=== PATIENT | male | born 1985 | race Caucasian/White ===

== ENCOUNTER 2018-02-07 20:16 | Emergency (ER) | payer OTHER ==
[~2018-02-07] VITALS: Ht 182.9 cm; Wt 134.1 kg
[~2018-02-07 20:16] MED LIST: ATIVAN0.5 MG PO; INDERAL 10MG10 MG PO; INDERAL 20MG20 MG PO; LEXAPRO 5MG5 MG PO; MULTAQ400 MG PO; NO HOME MEDICATIONS; PRADAXA 150MG150 MG PO; ULTRAM 50MG TAB50 MG PO
[2018-02-07 20:18] VITALS: TEMP 98.3
[2018-02-07 20:54] LABS: BASO # 0.1 (0.0-0.2); BASO % 0.8 % (0.0-2.0); EOS # 0.3 (0.0-0.7); EOS % 3.2 % (0-4.0); GRAN # 4.5 (1.4-6.5); HEMOGLOBIN 15.7 g/dl (13.5-18.0); LYMPH # 2.3 (1.2-3.4); LYMPH % 29.6 % (20.0-51.0); MEAN CELL VOLUME 89 fl (80.0-100.0); MEAN CORPUSCULAR HEMOGLOBIN 31 pg (27.0-31.0); MEAN CORPUSCULAR HGB CONC 34 g/dl (33.0-37.0); MONO # 0.6 (0.1-0.6); PLATELET COUNT 214 K/mm3 (130-400); RED BLOOD COUNT 5.15 M/mm3 (4.20-5.60); REDCELL DISTRIBUTION WIDTH-CV 12.8 % (11.5-14.5)
[2018-02-07 21:02] LABS: CALCIUM 8.5 mg/dL (8.4-10.2); CREATININE, serum 0.94 mg/dL (0.66-1.25); POTASSIUM 3.8 mmol/L (3.4-5.0)
[2018-02-07] MEDS ORDERED: LIPITOR20 MG PO (21:47)
[2018-02-07] MEDS ORDERED: PRIL40 PO (21:47)
[2018-02-07] MEDS ORDERED: TOPROL XL 25MG25 MG PO (21:47)
[2018-02-07] MEDS ORDERED: ADVIL200 MG PO (21:48)
[2018-02-07] MEDS ORDERED: ATIVAN 0.50.5 MG/TAB PO (21:48)
[2018-02-07] MEDS ORDERED: ASPIRIN 32325 MG/TAB PO (21:49)
[2018-02-07 22:00] VITALS: BP 126/80; PULSE 98
== END 2018-02-07 22:00 | disposition home or self-care (01) ==
LOC: COL.ER 20:16
PROVIDERS: Emergency Medicine
DX: I48.91 Unspecified atrial fibrillation (principal); Z79.82 Long term (current) use of aspirin
CPT/HCPCS: J2704; J7040

== ENCOUNTER 2019-03-14 13:31 | Emergency (ER) | payer SELFPAY ==
[~2019-03-14] VITALS: Ht 182.9 cm; Wt 123.6 kg
[~2019-03-14 13:31] MED LIST changes: +ADVIL200 MG PO; +ASPIRIN 32325 MG/TAB PO; +ATIVAN 0.50.5 MG/TAB PO; +LIPITOR20 MG PO; +PRIL40 PO; +TOPROL XL 25MG25 MG PO
[2019-03-14 15:40] LABS: BASO # 0.1 (0.0-0.2); BASO % 0.7 % (0.0-2.0); EOS # 0.2 (0.0-0.7); EOS % 2.1 % (0-4.0); GRAN # 4.9 (1.4-6.5); GRAN % 67.5 % (42.2-75.2); HEMATOCRIT 48.9 % (42.0-52.0); HEMOGLOBIN 16.3 g/dl (13.5-18.0); LYMPH # 1.6 (1.2-3.4); LYMPH % 21.5 % (20.0-51.0); MEAN CELL VOLUME 90 fl (80.0-100.0); MEAN CORPUSCULAR HEMOGLOBIN 30 pg (27.0-31.0); MEAN CORPUSCULAR HGB CONC 33 g/dl (33.0-37.0); MEAN PLATELET VOLUME 9.2 fl (7.4-10.4); MONO # 0.6 (0.1-0.6); MONO % 7.8 % (1.7-9.3); PLATELET COUNT 221 K/mm3 (130-400); RED BLOOD COUNT 5.43 M/mm3 (4.20-5.60); REDCELL DISTRIBUTION WIDTH-CV 12.9 % (11.5-14.5)
[2019-03-14 15:44] LABS: PROTHROMBIN TIME 12.1 SECONDS (9.7-12.8)
[2019-03-14 15:47] LABS: PARTIAL THROMBOPLASTIN TIME 32.1 SECONDS (26.0-37.0)
[2019-03-14 15:51] LABS: ALANINE AMINOTRANSFERASE 34 U/L (21-72); ALBUMIN 4.2 gm/dL (3.5-5.0); ALKALINE PHOSPHATASE 63 U/L (50-136); ANION GAP 13 mmol/L (7-16); AST,SGOT 37 U/L (15-37); BILIRUBIN,TOTAL 0.8 mg/dL (0.0-1.0); BLOOD UREA NITROGEN 17 mg/dL (9-20); CALCIUM 9.1 mg/dL (8.4-10.2); CARBON DIOXIDE 23 mmol/L (22-30); CHLORIDE 106 mmol/L (98-107); CREATININE, serum 0.91 (0.66-1.25); GLUCOSE 98 mg/dL (74-106); POTASSIUM 3.9 mmol/L (3.4-5.0); SODIUM 142 mmol/L (137-145); TOTAL PROTEIN 7.2 gm/dL (6.4-8.2)
[2019-03-14 16:14] LABS: TROPONIN-I < 0.012 ng/mL (0.000-0.035)
[2019-03-14] MEDS ORDERED: MULTAQ400 MG PO (16:26)
[2019-03-14 16:46] VITALS: BP 140/114; PULSE 75; TEMP 98
[2019-03-16] MEDS ORDERED: CORDARONE200 MG/TAB PO (16:28)
== END 2019-03-14 16:50 | disposition home or self-care (01) ==
LOC: COL.ER 13:31
PROVIDERS: Family Medicine
DX: I48.91 Unspecified atrial fibrillation (principal); Z79.1 Long term (current) use of non-steroidal anti-inflammatories (NSAID); Z79.82 Long term (current) use of aspirin
CPT/HCPCS: J2704; J7030

== ENCOUNTER 2020-03-05 02:15 | Emergency (ER) | payer BC ==
[~2020-03-05] VITALS: Ht 182.9 cm; Wt 129.5 kg
[~2020-03-05 02:15] MED LIST changes: +CORDARONE200 MG/TAB PO
[2020-03-05 02:23] VITALS: TEMP 98
[2020-03-05 02:58] LABS: BASO # 0.1 (0.0-0.2); BASO % 0.7 % (0.0-2.0); EOS # 0.2 (0.0-0.7); EOS % 3.1 % (0-4.0); GRAN # 4.4 (1.4-6.5); GRAN % 57.2 % (42.2-75.2); HEMATOCRIT 44.9 % (42.0-52.0); HEMOGLOBIN 15.2 g/dl (13.5-18.0); LYMPH # 2.3 (1.2-3.4); LYMPH % 29.8 % (20.0-51.0); MEAN CELL VOLUME 92 fl (80.0-100.0); MEAN CORPUSCULAR HEMOGLOBIN 31 pg (27.0-31.0); MEAN CORPUSCULAR HGB CONC 34 g/dl (33.0-37.0); MEAN PLATELET VOLUME 8.8 fl (7.4-10.4); MONO # 0.7 (0.1-0.6); MONO % 8.5 % (1.7-9.3); PLATELET COUNT 176 K/mm3 (130-400); RED BLOOD COUNT 4.88 M/mm3 (4.20-5.60); REDCELL DISTRIBUTION WIDTH-CV 12.9 % (11.5-14.5)
[2020-03-05 03:02] LABS: ALBUMIN 4.2 gm/dL (3.5-5.0); BILIRUBIN,TOTAL 0.8 mg/dL (0.0-1.0); CALCIUM 8.9 mg/dL (8.4-10.2); CREATININE, serum 1.2 (0.66-1.25); MAGNESIUM 1.9 mg/dL (1.6-2.3); POTASSIUM 3.5 mmol/L (3.4-5.0); TOTAL PROTEIN 7.4 gm/dL (6.4-8.2)
[2020-03-05] MEDS ORDERED: TOPROL XL 50MG50 MG PO (06:07)
[2020-03-05 06:30] VITALS: BP 106/51; PULSE 81
[2020-03-05] MEDS ORDERED: TAMBOCOR 1100 MG/TAB PO (07:16)
== END 2020-03-05 06:45 | disposition home or self-care (01) ==
LOC: COL.ER 02:15
PROVIDERS: Emergency Medicine
DX: R00.2 Palpitations (principal); R07.89 Other chest pain; F41.9 Anxiety disorder, unspecified; E66.9 Obesity, unspecified; E78.5 Hyperlipidemia, unspecified; Z87.891 Personal history of nicotine dependence; Z79.82 Long term (current) use of aspirin; Z86.79 Personal history of other diseases of the circulatory system

== ENCOUNTER → 2020-08-06 | Outpatient (CLI) | payer BC ==
[~2020-08-06] MED LIST changes: +TAMBOCOR 1100 MG/TAB PO; +TOPROL XL 50MG50 MG PO
== END ==
LOC: COL.RAD 13:30
DX: M79.89 Other specified soft tissue disorders (principal)

== ENCOUNTER → 2021-02-08 | Outpatient (CLI) | payer BC | LOC: ZCOL.LAB 11:23 | DX: Z20.822 Contact with and (suspected) exposure to COVID-19 (principal); Z01.812 Encounter for preprocedural laboratory examination ==